=== PATIENT | female | born 1990 | race Hispanic/Latino ===

== ENCOUNTER 2021-01-09 10:33 | Outpatient (CLI) | payer OTHER ==
--- NOTE | 2021-01-09 13:38 | Ultrasound Report ---
ULTRASOUND BREAST BILATERAL COMPLETE, 01/09/2021 CLINICAL INFORMATION / INDICATION: The patient reports generalized bilateral breast pain.. TECHNIQUE: COMPARISON: None. FINDINGS: Sonographic evaluation of all 4 quadrants, retroareolar region and axillary region of both breasts de monstrates no evidence of suspicious solid mass, shadowing or cyst. There is no focal abnormality to account for the patient's breast pain. IMPRESSION: No sonographic abnormality to account for the patient's generalized bilateral breast pain . Therefore, clinical correlation is recommended. Follow up recommendation: Clinical exam BI-RADS Category 1: Negative. A normal or "negative" report should not preclude biopsy or follow-up of a clinically suspicious find ing. Signer Name: Tashia Lacy MD Signed: 01/09/2021 1:33 PM Workstation Name: [id number]
== END 2021-01-09 10:34 | disposition home or self-care (01) ==
LOC: SPVWC 10:33
PROVIDERS: ATTEND Surgery
DX: N64.4 Mastodynia (principal)